=== PATIENT | female | born 1955 | race Caucasian/White ===

== ENCOUNTER 2024-08-19 19:54 | Emergency (ER) | payer OTHER ==
[~2024-08-19] VITALS: Ht 157.5 cm; Wt 82.4 kg
[2024-08-19] MEDS ORDERED: ASPIRIN 81M81 MG/TA2 PO (20:10)
[2024-08-19] MEDS ORDERED: FISH OIL1 IU PO (20:10)
[2024-08-19] MEDS ORDERED: Tdap Vaccine 0.5 ML SYRINGE IM ONE (20:15)
[2024-08-19 20:45] VITALS: BP 145/76
== END 2024-08-19 20:45 | disposition home or self-care (01) ==
LOC: ED 19:54
DX: S01.81XA Laceration without foreign body of other part of head, initial encounter (principal); Z23 Encounter for immunization; W18.30XA Fall on same level, unspecified, initial encounter; W22.8XXA Striking against or struck by other objects, initial encounter; Y99.0 Civilian activity done for income or pay
CPT/HCPCS: 90715